=== PATIENT | male | born 1980 | race Caucasian/White ===

== ENCOUNTER 2022-11-23 10:55 | Emergency (ER) | payer BC, OTHER ==
[~2022-11-23] VITALS: Ht 177.8 cm; Wt 113.4 kg
[2022-11-23 10:56] VITALS: BP 140/89
[2022-11-23] MEDS ORDERED: KETOROLAC 15 MG/ML VIAL IVP STA (11:16)
[2022-11-23 11:21] LABS: BASOPHILS # (AUTO) 0.1 10^3/uL (0.0-0.1); BASOPHILS % (AUTO) 1 % (0-10); EOSINOPHILS # (AUTO) 0.2 10^3/uL (0.0-0.3); EOSINOPHILS % (AUTO) 3 % (0-10); HEMATOCRIT 48 % (40-54); HEMOGLOBIN 16.5 g/dL (13.3-17.7); LYMPHOCYTES # (AUTO) 1.4 10^3/uL (1.0-4.0); LYMPHOCYTES % (AUTO) 19 % (12-44); MEAN CORPUSCULAR HEMOGLOBIN 30 pg (25-34); MEAN CORPUSCULAR HGB CONC 35 g/dL (32-36); MEAN CORPUSCULAR VOLUME 88 fL (80-99); MEAN PLATELET VOLUME 9.3 fL (9.0-12.2); MONOCYTES # (AUTO) 0.7 10^3/uL (0.0-1.0); MONOCYTES % (AUTO) 10 % (0-12); NEUTROPHILS % (AUTO) 68 % (42-75); PLATELET COUNT 237 10^3/uL (130-400); WHITE BLOOD COUNT 7.4 10^3/uL (4.3-11.0)
--- NOTE | 2022-11-23 11:23 | ED General ---
General Chief Complaint: Chest Pain Stated Complaint: CHEST PAIN Nursing Triage Note: PT AMBULATE TO ROOM FS06 WITH C/O CHEST PAIN STARTING MONDAY NIGHT. PT REPORTS TAKING TYLENOL "THE OTHER DAY". PT REPORTS PAIN IS WORSE WITH DEEP INSPIRATION. PT REPORTS HX OF DVT AND RESTARTED BLOOD THINNER ON MONDAY. Source of Information: Patient History of Present Illness Date Seen by Provider: Nov 23, 2022 Time Seen by Provider: 11:01 Initial Comments 42-year-old male presenting with complaints of sharp substernal chest pain since Monday night. He reports the pain is worse with deep inspiration and movements. 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 He had a clinic visit with his primary care provider and because he was having some leg pain they had him restart Xarel to. He has been working on a tractor and riding [place] days as well. He was unsure if that was the cause of some of the pain or if it was something else in his chest. He had gone to urgent care today and they told him he had some serious problems with his electrocardiogram and it looked bad so he needed to come to the emergency department. He denies having nausea, vomiting, shortness of breath, abdominal pain, headache, fever, chills. He did feel like he was sweating a lot last night but did not take his temperature. He denies taking any chronic medications other than the Xarelto that he was just restarted on this past Monday, November 18. He also was asking if there was testing to see if he had somehow been given the COVID-vaccine without his consent or knowing because he was concerned that people that have gotten the COVID-vaccine and had developed myocarditis and problems with her heart and chest. He thought that this might be a reason that he was having symptoms as he is adamant that he does not want a COVID-vaccine and has never taken a COVID- vaccine but again is concerned that someone may have given him the COVID vaccine without his knowledge and consent. Timing/Duration: 2-3 Days Severity: Moderate Modifying Factors: worse with Movement Associated Systoms: No Cough, No Diaphoresis, No Fever/Chills, No Headaches, No Loss of Appetite, No Malaise, No Nausea/Vomiting, No Rash, No Seizure, No Shortness of Air, No Syncope, No Weakness Allergies and Home Medications Allergies Coded Allergies: No Known Drug Allergies (Unverified , 11/23/22) Patient Home Medication List Home Medication List Reviewed: Yes Review of Systems Review of Systems Constitutional: see HPI; No chills, No fever EENTM: no symptoms reported Respiratory: no symptoms reported Cardiovascular: see HPI Gastrointestinal: no symptoms reported Genitourinary: no symptoms reported Musculoskeletal: other (leg pains in the last week) Skin: No change in color Psychiatric/Neurological: No Symptoms Reported Hematologic/Lymphatic: Blood Clots (hx of DVT x 2 and just restarted Xarelto on Friday November 18, 2022) Past [id number]-[id number] Hx Patient Social History Tobacco Use?: No Smoking Status: Never a Smoker Smokeless Tobacco Frequency: Never a User Use of E-Cig and/or Vaping dev: No Use of E-Cig and/or Vaping Rafiq: Never a User Substance use?: No Alcohol Use?: Yes Alcohol Frequency: Once in a while Pt feels they are or have been: No Past Medical History Surgery/Hospitalization HX: DVT Physical Exam Vital Signs Vital Signs - First Documented 11/23/22 10:56 Temp 36.7 Pulse 95 Resp 17 B/P (MAP) 140/89 (106) Pulse Ox 99 O2 Delivery Room Air Capillary Refill : Less Than 3 Seconds Height, Weight, BMI Height: '" Weight: lbs. oz. kg; 35.00 BMI Method: General Appearance: No Apparent Distress, Obese HEENT: PERRL/EOMI, Pharynx Normal Neck: Full Range of Motion, Normal Inspection, Non Tender, Supple Respiratory: Chest Non Tender, Lungs Clear, Normal Breath Sounds, No Accessory Muscle Use, No Respiratory Distress Cardiovascular: Regular Rate, Rhythm, Normal Peripheral Pulses Gastrointestinal: Normal Bowel Sounds, No Pulsatile Mass, Non Tender, Soft Rectal: Deferred Extremity: Normal Capillary Refill, No Pedal Edema Neurologic/Psychiatric: Alert, Oriented x3 Skin: Normal Color, Warm/Dry Progress/Results/Core Measures Suspected Sepsis SIRS Temperature: Pulse: 95 Respiratory Rate: 17 Laboratory Tests 11/23/22 11:06: White Blood Count 7.4 Blood Pressure 140 /89 Mean: 106 Laboratory Tests 11/23/22 11:06: Creatinine 1.10, INR Comment 1.0, Platelet Count 237, Total Bilirubin 0.6 Results/Orders Lab Results Laboratory Tests Test 11/23/22 11:06 Range/Units White Blood Count 7.4 4.3-11.0 10^3/uL Red Blood Count 5.44 4.30-5.52 10^6/uL Hemoglobin 16.5 13.3-17.7 g/dL Hematocrit 48 40-54 % Mean Corpuscular Volume 88 80-99 fL Mean Corpuscular Hemoglobin 30 25-34 pg Mean Corpuscular Hemoglobin Concent 35 32-36 g/dL Red Cell Distribution Width 12.2 10.0-14.5 % Platelet Count 237 130-400 10^3/uL Mean Platelet Volume 9.3 9.0-12.2 fL Immature Granulocyte % (Auto) 0 % Neutrophils (%) (Auto) 68 42-75 % Lymphocytes (%) (Auto) 19 12-44 % Monocytes (%) (Auto) 10 0-12 % Eosinophils (%) (Auto) 3 0-10 % Basophils (%) (Auto) 1 0-10 % Neutrophils # (Auto) 5.0 1.8-7.8 10^3/uL Lymphocytes # (Auto) 1.4 1.0-4.0 10^3/uL Monocytes # (Auto) 0.7 0.0-1.0 10^3/uL Eosinophils # (Auto) 0.2 0.0-0.3 10^3/uL Basophils # (Auto) 0.1 0.0-0.1 10^3/uL Immature Granulocyte # (Auto) 0.0 0.0-0.1 10^3/uL Prothrombin Time 13.7 12.2-14.7 SEC INR Comment 1.0 0.8-1.4 Activated Partial Thromboplast Time 35 24-35 SEC Sodium Level 139 135-145 MMOL/L Potassium Level 3.8 3.6-5.0 MMOL/L Chloride Level 103 98-107 MMOL/L Carbon Dioxide Level 24 21-32 MMOL/L Anion Gap 12 5-14 MMOL/L Blood Urea Nitrogen 13 7-18 MG/DL Creatinine 1.10 0.60-1.30 MG/DL Estimat Glomerular Filtration Rate 85 BUN/Creatinine Ratio 12 Glucose Level 103 70-105 MG/DL Calcium Level 9.6 8.5-10.1 MG/DL Corrected Calcium 9.4 8.5-10.1 MG/DL Magnesium Level 2.2 1.6-2.4 MG/DL Total Bilirubin 0.6 0.1-1.0 MG/DL Aspartate Amino Transf (AST/SGOT) 17 5-34 U/L Alanine Aminotransferase (ALT/SGPT) 22 0-55 U/L Alkaline Phosphatase 98 40-136 U/L Troponin I < 0.30 <0.30 NG/ML Pro-B-Type Natriuretic Peptide < 36.0 <125.0 PG/ML Total Protein 7.1 6.4-8.2 GM/DL Albumin 4.3 3.2-4.5 GM/DL Lipase 31 8-78 U/L My Orders Orders - MARCIN VARGAS MD Cbc With Automated Diff (11/23/22 11:15) Magnesium (11/23/22 11:15) Ekg Tracing (11/23/22 11:15) Comprehensive Metabolic Panel (11/23/22 11:15) Protime With Inr (11/23/22 11:15) Partial Thromboplastin Time (11/23/22 11:15) O2 (11/23/22 11:15) Monitor-Rhythm Ecg Trace Only (11/23/22 11:15) Ed Iv/Invasive Line Start (11/23/22 11:15) Lipase (11/23/22 11:15) Troponin I Fs (11/23/22 11:15) Probnp Fs (11/23/22 11:15) Ct Angio Chest W (11/23/22 11:15) Ketorolac Injection (Toradol Injection) (11/23/22 11:16) Iohexol Injection (Omnipaque 350 Mg/Ml 1 (11/23/22 12:00) Received Contrast (Hold Metformin- Contr (11/23/22 12:00) Ns (Ivpb) (Sodium Chloride 0.9% Ivpb Bag (11/23/22 12:00) Methylprednisolone Acetate Inj (Depo-Med (11/23/22 13:07) Medications Given in ED Current Medications Medications Dose Ordered Sig/Humberto Route Start Time Stop Time Status Last Admin Dose Admin Iohexol 100 ml ONCE ONCE IV 11/23/22 12:00 11/23/22 12:01 DC 11/23/22 12:06 100 ML Sodium Chloride 100 ml ONCE ONCE IV 11/23/22 12:00 11/23/22 12:01 DC 11/23/22 12:06 100 ML Vital Signs/I&O 11/23/22 11/23/22 10:56 10:56 Temp 36.7 Pulse 95 Resp 17 B/P (MAP) 140/89 (106) Pulse Ox 99 O2 Delivery Room Air Room Air Capillary Refill : Less Than 3 Seconds Blood Pressure Mean: 106 Progress Note #1: Progress Note Potential diagnosis of acute coronary syndrome, myocardial infarction, chest wall strain, pulmonary embolism, pneumonia, pulmonary mass. Obtain electrocardiogram and place patient on cardiac court monitor. On my initial interpretation and review of his cardiac telemetry shows heart rate in the 90s with no ectopy or ischemic changes. He had a slightly elevated blood pressure of 140/89. His oxygen saturation was 99 to 100% on room air and breathing proximately 14 times a minute. He states his pain was feeling better now that it had been and it varies on what position he is in. He had difficulty sleeping last night because he could not find a comfortable position. Establish peripheral IV access and send labs for complete blood count, comprehensive metabolic profile, troponin, proBNP, magnesium, lipase, coagulation factors. CT scan of the chest with angiography to evaluate for possible pulmonary embolism or aortic dissection or pathology in the chest to be causing his substernal chest pain with position and deep breathing. Administer Toradol 15 mg IV for anti-inflammatory effect and see if this helps with his pain as well. Progress Note #2: Time: 11:49 Progress Note His complete blood count showed a normal white blood cell count of 7.4. His hemoglobin was high normal at 16.5. He had normal platelets of 237. His coagulation factors showed a normal pro time of 13.7, INR of 1, PTT of 35. He was not exhibiting abnormal labs consistent with coagulopathy. Comprehensive metabolic profile is pending and CT angiography of the chest. 1158 comprehensive metabolic panel did not show any acute significant electrolyte abnormality to account for his symptoms. His BUN was normal at 13 and creatinine 1.1. His troponin was less than 0.3. Since he has had some fairly constant pain since Monday by now if this was a myocardial infarction or acute coronary syndrome I would have expected elevation of the troponin. His proBNP is normal and not elevated. He also had a normal lipase of 31. Magnesium was normal at 2.2. Awaiting CT angiography of the chest. Progress Note #3: Progress Note CT scan of the chest with IV contrast showed no pulmonary embolism or infiltrat e. He did have an area of inflammation of the epicardial or pericardial fat pad between his heart and sternum. This was read out by the radiologist as concerning for epicardial or pericardial fat necrosis. The radiologist recommended repeat imaging in 2 to 3 weeks to ensure this had resolved. From review of online medical resources such as up-to-date it appears that this process is self-limiting and they do not have a specific cause for it. They think sometimes it might be related to trauma, obesity, pericarditis or an inflammatory process. Advised that I could do a steroid to try and help with the symptoms and he was agreeable to a steroid shot and was requesting cortisone which I do not have. I advised him I can do prednisone and patient states he do es not like prednisone because of the side effects. He was willing to get a either a dexamethasone shot or cortisone shot. I explained to him the dexamethasone to be a one-time shot that helps for 24 to 36 hours. They could do Depo-Medrol which would be somewhat similar to the cortisone and have an effect over the next 7 to 10 days as it slowly absorbed from the muscle. He was agreeable to having the Depo-Medrol shot done. He was worried that it was going to dry him out make him have more inflammation. We will give a lower dose of 40 mg IM x1. Encouraged to stay well-hydrated and drink plenty of fluids. She could try alternating ice and heat to the chest wall to see if that might help. Check back with the clinic and follow-up with [facility] to have repeat CT scan or imaging to check in 2 to 3 weeks that his area of inflammation and fat necrosis had resolved. Reassured that we did not see any indications of heart attack or heart damage and no blood clots in the chest. ECG Initial ECG Impression Date: Nov 23, 2022 Initial ECG Impression Time: 11:06 Initial ECG Rate: 95 Initial ECG Rhythm: Normal Sinus Initial ECG Comparisson: No Previous ECG Available Comment On my personal interpretation and review his electrocardiogram shows a normal sinus rhythm with a heart rate of 95 bpm. VT interval normal at 176 ms. He has no acute ST elevation. His QT interval is 313 ms with a QTc interval 365 ms. He has no prior tracings available for comparison. Diagnostic Imaging Diagonstic Imaging: CT Plain Films/CT/US/NM/MRI: chest Comments NAME: DON FERNANDEZ [facility] REC#: [id number] PT STATUS: REG ER : 1980 PHYSICIAN: MARCIN VARGAS MD ADMIT DATE: 11/23/22/ER FS Draft Date of Exam:11/23/22 CT ANGIO CHEST W EXAMINATION: CT angiography of the chest. TECHNIQUE: Contrast enhanced thin section helical images were obtained through the chest with intravenous contrast timed for the optimal opacification of the arterial structures per CTA protocol. Post-processing, reconstructions and interpretation of angiographic images of the vessels was performed. 3D MIP reconstructions were performed and reviewed. All CT scans use one or more of the following dose optimizing techniques: automated exposure control, MA and/or KvP adjustment based on a patient size and exam type, or iterative reconstruction. HISTORY: Chest pain. COMPARISON: None available. FINDINGS: There is no pulmonary embolism. There is no edema or pneumonia. No pleural effusion. No pneumothorax. No suspicious nodules. There are mild scattered areas of atelectasis. There is no axillary or supraclavicular lymphadenopathy. There is no mediastinal lymphadenopathy. There is moderate fat stranding in the anterior mediastinum with an ill-defined area of soft tissue superiorly. The stranding appears to be encapsulated fat and is favored to represent epipericardial fat necrosis. Heart size is normal. There are no coronary artery calcifications. No pericardial effusion. Aorta is normal in caliber. Limited views of the upper abdomen are unremarkable. There are no suspicious osseous lesions. IMPRESSION: 1. No pulmonary embolism. 2. Anterior mediastinal fat stranding and ill-defined soft tissue. 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 Differentials are mediastinitis and pericarditis. Close clinical follow-up and imaging follow-up in two to three weeks is recommended. Dictated on workstation # [id number] Dict: 11/23/22 1222 Trans: 11/23/22 1231 [id number] Interpreted by: MARCO A SHARMA MD Electronically signed by: Reviewed: Reviewed by Me (I reviewed the radiologist report at 1246) Departure Impression Primary Impression: Pleuritic chest pain Additional Impression: Fat necrosis Disposition: 01 HOME, SELF-CARE Condition: Stable Departure-Patient Inst. Decision time for Depature: 12:49 Referrals: SINA HARRIS MD (PCP) Primary Care Physician Patient Instructions: Pleuritic Chest Pain ED Add. Discharge Instructions: There are no indications of pulmonary embolism or blood clots in your chest. Your blood work and all looked good from a heart standpoint as well. The CT scan showed an area of inflammation of the layer of fat between the monty rnum and your heart. They do not know what exactly causes this but it is a self- limiting process and gets better on it's own over the next week or so. The Radiologist recommends you have repeat imaging in 2-3 weeks to see that the area is resolving and clearing up for you. You could do this with Dr. Harris and the [facility] clinic. The medical term for this condition is Epicardial or Pericardial Fat Necrosis. The steroid shot should help with inflammation and your pleuritic chest pain over the next 7 to 10 days as your body absorbs it from the muscle. All discharge instructions reviewed with patient and/or family. Voiced understanding. Copy Copies To 1: SINA HARRIS MD, MARC E MD Nov 23, 2022 11:22
[2022-11-23 11:33] LABS: PROTHROMBIN TIME PATIENT 13.7 SEC (12.2-14.7)
[2022-11-23 11:50] LABS: CARBON DIOXIDE 24 MMOL/L (21-32); CHLORIDE 103 MMOL/L (98-107); POTASSIUM 3.8 MMOL/L (3.6-5.0); SODIUM 139 MMOL/L (135-145)
[2022-11-23 11:51] LABS: ALANINE AMINOTRANSFERASE 22 U/L (0-55); ALBUMIN 4.3 GM/DL (3.2-4.5); ALKALINE PHOSPHATASE 98 U/L (40-136); BILIRUBIN,TOTAL 0.6 MG/DL (0.1-1.0); BUN/CREATININE RATIO 12; CALCIUM 9.6 MG/DL (8.5-10.1); GFR ESTIMATED 85; GLUCOSE 103 MG/DL (70-105); LIPASE 31 U/L (8-78); MAGNESIUM 2.2 MG/DL (1.6-2.4); TOTAL PROTEIN 7.1 GM/DL (6.4-8.2)
[2022-11-23] MEDS ORDERED: IOHEXOL 350 MG/ML 100 ML (OMNIPAQUE 350) VIAL IV ONE (12:00)
[2022-11-23] MEDS ORDERED: HOLD METFORMIN - RECEIVED CONTRAST 20 ML VIAL IV SCH (12:00)
[2022-11-23] MEDS ORDERED: NS 100 ML (IVPB) BAG IV ONE (12:00)
--- NOTE | 2022-11-23 12:31 | Diagnostic Imaging Report ---
EXAMINATION: CT angiography of the chest. TECHNIQUE: Contrast enhanced thin section helical images were obtained through the chest with intravenous contrast timed for the optimal opacification of the arterial structures per CTA protocol. Post-processing, reconstructions and interpretation of angiographic images of the vessels was performed. 3D MIP reconstructions were performed and reviewed. All CT scans use one or more of the following dose optimizing techniques: automated exposure control, MA and/or KvP adjustment based on a patient size and exam type, or iterative reconstruction. HISTORY: Chest pain. COMPARISON: None available. FINDINGS: There is no pulmonary embolism. There is no edema or pneumonia. No pleural effusion. No pneumothorax. No suspicious nodules. There are mild scattered areas of atelectasis. There is no axillary or supraclavicular lymphadenopathy. There is no mediastinal lymphadenopathy. There is moderate fat stranding in the anterior mediastinum with an ill-defined area of soft tissue superiorly. The stranding appears to be encapsulated fat and is favored to represent epipericardial fat necrosis. Heart size is normal. There are no coronary artery calcifications. No pericardial effusion. Aorta is normal in caliber. Limited views of the upper abdomen are unremarkable. There are no suspicious osseous lesions. IMPRESSION: 1. No pulmonary embolism. 2. Anterior mediastinal fat stranding and ill-defined soft tissue. 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 Differentials are mediastinitis and pericarditis. Close clinical follow-up and imaging follow-up in two to three weeks is recommended. Dictated by: Dictated on workstation # [id number]
[2022-11-23] MEDS ORDERED: methylPREDNISolone 40 MG/ML (DEPO MEDROL) VIAL IM STA (13:07)
== END 2022-11-23 13:15 | disposition home or self-care (01) ==
LOC: ER FS 10:58
DX: R07.81 Pleurodynia (principal); M79.89 Other specified soft tissue disorders; E66.9 Obesity, unspecified; Z68.35 Body mass index [BMI] 35.0-35.9, adult; Z86.718 Personal history of other venous thrombosis and embolism; Z79.01 Long term (current) use of anticoagulants; Z28.310 Unvaccinated for COVID-19
CPT/HCPCS: 36415; 71275; 80053; 83690; 83735; 83880; 84484; 85025; 85610; 85730; 93005; 93041; Q9967